=== PATIENT | male | born 1980 ===

== ENCOUNTER 2020-04-15 20:19 | Inpatient (IN) | payer SELFPAY ==
[2020-04-15 23:30] VITALS: BMI 36.9
[2020-04-16] MEDS ORDERED: FLU VACC QS2020-21(6MOS UP)/PF 60 MCG/0.5 ML SYRINGE IM ONE (07:15)
[2020-04-16] MEDS ORDERED: Acetaminophen 650 MG Suppository PR PRN (09:41)
[2020-04-16] MEDS ORDERED: Ondansetron ODT 4 MG TAB PO PRN (09:41)
[2020-04-16] MEDS ORDERED: Guaifenesin DM 100-10/5 ML UDCUP PO PRN (09:41)
[2020-04-16 09:42] LABS: #Lymphocytes 0.6 thou/uL (1.20-3.40); #Monocytes 0.6 thou/uL (0.11-0.59); #Neutrophils 8.1 thou/uL (1.40-6.50); %Lymphocytes 6.8 % (21.0-51.0); %Monocytes 6.1 % (0.0-10.0); Hemoglobin 14.6 g/dL (14.0-18.0); Mean Corpuscular HGB CONC 32.8 g/dL (32.0-36.0); Mean Corpuscular Hemoglobin 28.8 pg (27.0-31.0); Mean Corpuscular Volume 87.6 fL (78.0-98.0); Mean Platelet Volume 8.8 fL (7.4-10.4); Platelet Count 164 thou/uL (130-400); RBC Distribution Width 12.6 % (11.5-14.5); Red Blood Cell (RBC) Count 5.06 mill/uL (4.70-6.10); White Blood Cell (WBC) Count 9.3 thou/uL (4.8-10.8)
--- NOTE | 2020-04-16 09:42 | RAD ---
Exam: Chest one view HISTORY:Shortness of breath Comparison: 04/15/2020 FINDINGS: Cardiac silhouette: Normal Aorta: Unremarkable Pulmonary vessels: Normal Costophrenic angles: Clear LUNGS: Redemonstrated multifocal interstitial and alveolar opacities. Pneumothorax: None Osseous abnormalities: None IMPRESSION: Stable multi lobar pneumonia
[2020-04-16] MEDS ORDERED: Albuterol Sulfate 2.5 mg/3 ml Neb EZPAP PRN (09:44)
[2020-04-16 10:00] LABS: ALT (SGPT) 31 U/L (8-55); AST (SGOT) 28 U/L (5-34); Albumin 3.6 g/dL (3.5-5.0); Alkaline Phosphatase 52 U/L (40-110); Anion Gap 13 mmol/L (10-20); BUN (Urea Nitrogen) 11 mg/dL (8.9-20.6); Bilirubin, Total 0.4 mg/dL (0.2-1.2); Calc. Creatinine Clearance 190 mL/min (70-130); Calcium 8.1 mg/dL (7.8-10.44); Carbon Dioxide 26 mmol/L (22-29); Chloride 104 mmol/L (98-107); Globulin 3.5 g/dL (2.4-3.5); Glucose 116 mg/dL (70-105); Potassium 3.9 mmol/L (3.5-5.1); Protein, Total 7.1 g/dL (6.0-8.3); Sodium 139 mmol/L (136-145)
[2020-04-16] MEDS: cefTRIAXone\\ROCEPHIN 1 GM in Sodium Chloride 0.9% 100 ML IVPB SCH (10:27)
[2020-04-16] MEDS: Benzonatate 100 MG CAP PO PRN ×3 (10:27→20:26)
[2020-04-16] MEDS: Acetaminophen 325 MG TAB PO PRN ×3 (10:27→20:26)
[2020-04-16] MEDS: Ondansetron PF 4 MG/2 ML Vial IVP PRN ×2 (10:28→17:00)
[2020-04-16] MEDS ORDERED: REMDESIVIR (EUA) 200 MG in Sodium Chloride 0.9% 250 ML 210 ML IV SCH (10:30)
[2020-04-16] MEDS ORDERED: Melatonin 3 MG TAB PO PRN (11:30)
--- NOTE | 2020-04-16 11:44 | PDOC.HHP ---
Hospitalist HPI SOB History of Present Illness: Mr. Carr is a 39-year-old male with past medical history of childhood asthma not on any inhalers who presented to outside hospital for shortness of breath found to be Covid and flu B+. Patient reports that his symptoms began approximately 4 days ago with subjective fevers and myalgias. Patient developed a dry cough and shortness of breath the following day prompting him to present to the emergency room. Patient was transferred to [facility] in [place]. At outside hospital patient required 2 L nasal cannula O2 to maintain oxygenation saturation. His initial WBC was 5.9, H/H 15.5/46.4, platelets 129. BUN/CR was 10/0.9, potassium 4.3, sodium 137. AST/ALT 32/40. Initial troponin was less than 0.05, but myoglobin was slightly elevated at 182. Patient denies having any chest pain. D-dimer 181. Flu a was negative flu be positive. COVID-19 positive. Patient received Tamiflu at outside hospital as well as albuterol inhalers, ceftriaxone, azithromycin and Solu-Medrol. Chest x-ray showed multifocal bilateral infiltrates consistent with COVID-19 pneumonia. Allergies/Adverse Reactions: Allergy/AdvReac Type Severity Reaction Status Date / Time tramadol Allergy Verified 04/15/20 23:35 vancomycin Allergy Verified 04/15/20 23:35 Home Medications: Medication Instructions Recorded Confirmed Type No Known 04/15/20 04/15/20 History Past History: PMHx: Childhood history of asthma PSHx: Cholecystectomy uses alcohol FHx: No pertinent family history Social: Occasionally on the weekends, no smoking or drug use. Hospitalist HPI ROS Constitutional: reports: fever, chills, weakness, malaise. denies: sweats, other Eyes: denies: pain, vision change, conjunctivae inflammation, eyelid inflammation, redness, other ENT: reports: throat pain. denies: ear pain, ear discharge, nose pain, nose discharge, nose congestion, mouth pain, mouth swelling, throat swelling, other Respiratory: reports: cough, dry, shortness of breath, SOB with excertion. denies: hemoptysis, pleuritic pain, sputum, wheezing, other Cardiovascular: denies: chest pain, palpitations, orthopnea, paroxysmal noc. dyspnea, edema, light headedness, other Gastrointestinal: denies: nausea, vomiting, abdominal pain, diarrhea, constipation, melena, hematochezia, other Genitourinary: denies: dysuria, frequency, incontinence, hematuria, retention, other Musculoskeletal: denies: neck pain, shoulder pain, arm pain, back pain, hand pain, leg pain, foot pain, other Skin: denies: rash, lesions, norma, bruising, other Neurological: denies: weakness, numbness, incoordination, change in speech, confusion, seizures, other Hospitalist Exam Vitals: Vital Signs (12 hours) Temp Pulse Resp BP Pulse Ox 04/16/20 09:41 110/75 04/16/20 08:00 100.1 F H 88 20 110/85 91 L Weight Weight 228 lb 14.4 oz General Appearance: NAD, awake alert General - other findings: Comfortable on 3 L nasal cannula Eye: PERRL, anicteric sclera ENT: normocephalic atraumatic, no oropharyngeal lesions, moist mucosa Neck: supple, symmetric, no JVD, no thyromegaly, no lymphadenopathy, no carotid bruit Heart: RRR, no murmur, no gallops, no rubs, normal peripheral pulses Respiratory: CTAB, no wheezes, no rales, no ronchi, normal chest expansion, no tachypnea, normal percussion Gastrointestinal: soft, non-tender, non-distended, normal bowel sounds, no palpable masses, no hepatomegaly, no splenomegaly, no bruit Extremities: no cyanosis, no clubbing, no edema Skin: normal turgor, no lesions, no rashes Neurological: cranial nerve grossly intact, normal sensation to touch, no weakness, no focal deficits, no new deficit Musculoskeletal: normal tone, normal strength, no muscle wasting Psychiatric: normal affect, normal behavior, A&O x 3 Hospitalist Results Result Diagrams: 04/16/20 09:07 04/16/20 09:07 Lab results: Laboratory Last Values WBC 9.3 thou/uL (4.8-10.8) 04/16/20 09:07 RBC 5.06 mill/uL (4.70-6.10) 04/16/20 09:07 Hgb 14.6 g/dL (14.0-18.0) 04/16/20 09:07 Hct 44.3 % (42.0-52.0) 04/16/20 09:07 MCV 87.6 fL (78.0-98.0) 04/16/20 09:07 MCH 28.8 pg (27.0-31.0) 04/16/20 09:07 MCHC 32.8 g/dL (32.0-36.0) 04/16/20 09:07 RDW 12.6 % (11.5-14.5) 04/16/20 09:07 Plt Count 164 thou/uL (130-400) 04/16/20 09:07 MPV 8.8 fL (7.4-10.4) 04/16/20 09:07 Neutrophils % 87.0 % (42.0-75.0) H 04/16/20 09:07 Lymphocytes % 6.8 % (21.0-51.0) L 04/16/20 09:07 Monocytes % 6.1 % (0.0-10.0) 04/16/20 09:07 Eosinophils % 0.0 % (0.0-10.0) 04/16/20 09:07 Basophils % 0.0 % (0.0-1.0) 04/16/20 09:07 Neutrophils # 8.1 thou/uL (1.40-6.50) H 04/16/20 09:07 Lymphocytes # 0.6 thou/uL (1.20-3.40) L 04/16/20 09:07 Monocytes # 0.6 thou/uL (0.11-0.59) H 04/16/20 09:07 Eosinophils # 0.0 thou/uL (0.0-0.7) 04/16/20 09:07 Basophils # 0.0 thou/uL (0.0-0.2) 04/16/20 09:07 Sodium 139 mmol/L (136-145) 04/16/20 09:07 Potassium 3.9 mmol/L (3.5-5.1) 04/16/20 09:07 Chloride 104 mmol/L (98-107) 04/16/20 09:07 Carbon Dioxide 26 mmol/L (22-29) 04/16/20 09:07 Anion Gap 13 mmol/L (10-20) 04/16/20 09:07 BUN 11 mg/dL (8.9-20.6) 04/16/20 09:07 Creatinine 0.78 mg/dL (0.7-1.3) 04/16/20 09:07 Estimated GFR (MDRD) Greater than 90 04/16/20 09:07 Glucose 116 mg/dL (70-105) H 04/16/20 09:07 Calcium 8.1 mg/dL (7.8-10.44) 04/16/20 09:07 Total Bilirubin 0.4 mg/dL (0.2-1.2) 04/16/20 09:07 AST 28 U/L (5-34) 04/16/20 09:07 ALT 31 U/L (8-55) 04/16/20 09:07 Alkaline Phosphatase 52 U/L (40-110) 04/16/20 09:07 Serum Total Protein 7.1 g/dL (6.0-8.3) 04/16/20 09:07 Albumin 3.6 g/dL (3.5-5.0) 04/16/20 09:07 Globulin 3.5 g/dL (2.4-3.5) 04/16/20 09:07 Albumin/Globulin Ratio 1.0 g/dL (1.2-2.2) L 04/16/20 09:07 Hospitalist H&P A/P Plan: COVID-19 pneumonia 39-year-old male past medical history of childhood asthma not on any inhalers presents with shortness of breath found to have COVID-19 pneumonia. Patient symptoms began on 04/12/2020, and have been progressive. Patient initially presented to outside hospital and was held there for 2 days. Patient initially requiring 2 L of oxygen via nasal cannula now up to 3 L. Patient did received steroids at outside hospital positive for flu B and did receive Tamiflu at outside hospital. Patient transferred to [facility] for higher level of care. There is a question, asked nursing staff if patient had received remdesivir at outside hospital and concern of LFTs, however I am unable to find this in any of her records and in fact patient's LFTs taken on the , first and second are all within normal limits. We will continue supplemental oxygen, obtain baseline inflammatory markers continue Decadron and start remdesivir. Plan -Decadron, remdesivir -Ceftriaxone, azithromycin -Supplemental oxygen -Tylenol, Robitussin -Vitamin C, zinc -We will obtain baseline inflammatory markers Acute hypoxic respiratory failure Patient with acute hypoxic respiratory failure secondary to moderate to severe COVID-19 pneumonia. Patient with new oxygen requirement now on 3 L of oxygen nasal cannula to maintain O2 sat. We will continue supplemental oxygen and closely monitor respiratory status. Treatment as above. Plan -Supplemental oxygen -Treatment as above -Closely monitor respiratory status Influenza Patient has a positive for flu B head outside hospital. Patient also Covid positive. Chest x-ray consistent with COVID-19 pneumonia. Given patient's oxygen requirements symptoms and chest x-ray findings suspect pneumonia is more likely due to COVID-19. Patient did receive Tamiflu at outside hospital. I have discussed this with the clinical pharmacist and there are small studies and expert advice recommends against the use of Tamiflu and remdesivir at the same time for concerns that Tamiflu would make remdesivir less effective. Since COVID-19 is likely patient's major concern we will continue remdesivir and hold Tamiflu at this time. Plan Supportive care Treatment for COVID-19 pneumonia as above Airborne, contact, droplet precautions DVT prophylaxisLovenox Full codeMDM is patient's mother.
[2020-04-16] MEDS ORDERED: Azithromycin 500 MG in Sodium Chloride 0.9% 250 ML 250 ML IVPB SCH (20:00)
[2020-04-16] MEDS ORDERED: Ibuprofen 200 MG TAB PO SCH (22:30)
[2020-04-16] MEDS ORDERED: Sodium Chloride 0.9% 500 ML IV SCH (22:30)
[2020-04-16] MEDS: Sodium Chloride 0.9% 1,000 ML IV SCH (22:38)
[2020-04-16 23:10] LABS: Lactic Acid 1.4 mmol/L (0.5-2.2)
[2020-04-16 23:14] LABS: Anion Gap 13 mmol/L (10-20); Carbon Dioxide 25 mmol/L (22-29); Chloride 101 mmol/L (98-107); Magnesium 2.1 mg/dL (1.6-2.6); Sodium 135 mmol/L (136-145)
--- NOTE | 2020-04-17 00:11 | CT ---
CT ANGIOGRAM THORAX WITH IV CONTRAST AND 3-D RECONSTRUCTIONS CLINICAL INDICATION: Tachycardia and shortness of breath. COMPARISON: None FINDINGS: Pulmonary arteries: No filling defects are seen in the central or proximal segmental pulmonary arteri es, but there is suboptimal opacification of the distal segmental and subsegmental pulmonary arteries due to suboptimal timing of the contrast bolus limiting evaluation for pulmonary emboli at t hese levels. Aorta: The aorta is normal in caliber without evidence of an aortic dissection. Lungs: There are scattered multifocal groundglass densities seen throughout the lungs bilaterally in a pattern most compatible with viral pneumonitis such as Covid 19. No pleural effusion or pneumothorax is seen to Mediastinum: Enlarged mediastinal lymph nodes are present. A subcarinal lymph node is present measuri ng 1.3 cm in short axis dimension with additional para-aortic prominent lymph nodes also present with mild soft tissue density in each hilar region. Findings are likely related to reactive lymphaden opathy. Thyroid gland: Limited visualized thyroid gland has a normal appearance to Osseous structures: No suspicious lytic or sclerotic osseous lesion. Chest wall: No abnormality visualized. Upper abdomen: Postcholecystectomy changes are present. IMPRESSION: 1. Multifocal groundglass densities seen throughout the lungs bilaterally in a pattern which can be s een with viral pneumonitis such as Covid 19. [address] evidence of a pulmonary embolus involving the central or proximal segmental pulmonary arteri es. There is suboptimal opacification of the distal segmental and subsegmental pulmonary arteries limiting evaluation for pulmonary emboli at these levels. 3. Mediastinal and hilar lymphadenopathy which may be reactive in origin.
[2020-04-17] MEDS: Sodium Chloride 0.9% 1,000 ML IV SCH ×4 (01:29→21:59)
[2020-04-17 06:48] LABS: #Eosinphils 0.1 thou/uL (0.0-0.7); #Lymphocytes 1.4 thou/uL (1.20-3.40); #Monocytes 0.6 thou/uL (0.11-0.59); #Neutrophils 6.9 thou/uL (1.40-6.50); %Basophils 0.1 % (0.0-1.0); %Eosinophils 0.6 % (0.0-10.0); %Lymphocytes 15.2 % (21.0-51.0); %Monocytes 6.9 % (0.0-10.0); %Neutrophils 77.3 % (42.0-75.0); Hemoglobin 15.2 g/dL (14.0-18.0); Mean Corpuscular HGB CONC 33.4 g/dL (32.0-36.0); Mean Corpuscular Hemoglobin 29.7 pg (27.0-31.0); Mean Corpuscular Volume 88.9 fL (78.0-98.0); Mean Platelet Volume 8.3 fL (7.4-10.4); Platelet Count 172 thou/uL (130-400); RBC Distribution Width 12.6 % (11.5-14.5); Red Blood Cell (RBC) Count 5.13 mill/uL (4.70-6.10); White Blood Cell (WBC) Count 8.9 thou/uL (4.8-10.8)
[2020-04-17 07:17] LABS: Anion Gap 14 mmol/L (10-20); BUN (Urea Nitrogen) 11 mg/dL (8.9-20.6); Calc. Creatinine Clearance 175 mL/min (70-130); Calcium 7.9 mg/dL (7.8-10.44); Carbon Dioxide 26 mmol/L (22-29); Chloride 103 mmol/L (98-107); Glucose 92 mg/dL (70-105); Sodium 139 mmol/L (136-145)
[2020-04-17 07:22] LABS: ALT (SGPT) 42 U/L (8-55); AST (SGOT) 38 U/L (5-34); Albumin 3.6 g/dL (3.5-5.0); Alkaline Phosphatase 62 U/L (40-110); Bilirubin, Direct 0.3 mg/dL (0.1-0.3); Bilirubin, Total 0.6 mg/dL (0.2-1.2); Protein, Total 7.1 g/dL (6.0-8.3)
[2020-04-17] MEDS: Acetaminophen 325 MG TAB PO PRN (07:51)
[2020-04-17] MEDS: Dexamethasone 4 MG TAB PO SCH (07:51)
[2020-04-17] MEDS: cefTRIAXone\\ROCEPHIN 1 GM in Sodium Chloride 0.9% 100 ML IVPB SCH (07:53)
[2020-04-17] MEDS ORDERED: Ascorbic Acid 500 mg Chewable Tablet PO SCH ×2 (09:00)
[2020-04-17] MEDS ORDERED: Cholecalciferol (Vitamin D3) 400 UNITS TAB PO SCH (09:00)
[2020-04-17] MEDS ORDERED: Enoxaparin Sodium 40 MG/0.4 ML SYRINGE SC SCH (09:00)
[2020-04-17] MEDS ORDERED: Zinc Sulfate 220 MG CAP PO SCH ×2 (09:00)
[2020-04-17] MEDS: REMDESIVIR (EUA) 100 MG in Sodium Chloride 0.9% 250 ML 230 ML IV SCH (10:41)
--- NOTE | 2020-04-17 15:41 | PDOC.HOSPP ---
- Subjective Encounter Date: 04/17/20 Subjective: Continues to have some cough. No major shortness of breath. No other specific concerns. - Objective Vital Signs & Weight: Vital Signs (12 hours) Temp Pulse Resp BP Pulse Ox 04/17/20 11:04 99.4 F 101 H 16 101/71 97 04/17/20 10:53 99.4 F 102 H 20 108/71 97 04/17/20 07:34 102.6 F H 117 H 18 128/82 91 L 04/17/20 04:34 98.0 F 92 16 108/69 94 L Weight Weight 228 lb 14.4 oz Most Recent Monitor Data Heart Rate from ECG 88 NIBP 96/61 I&O: 04/16/20 04/17/20 04/18/20 06:59 06:59 06:59 Intake Total 2450 360 Output Total 1700 500 Balance 750 -140 Result Diagrams: 04/17/20 06:20 04/17/20 06:20 Hospitalist ROS - Medication Medications: Active Medications Generic Name Dose Route Start Last Admin Trade Name Freq PRN Reason Stop Dose Admin Acetaminophen 650 mg 04/16/20 09:41 04/17/20 07:51 Acetaminophen 325 Mg Tab PO 650 mg Q4H PRN Administration Headache/Fever/Mild Pain (1-3) Benzonatate 100 mg 04/16/20 09:46 04/16/20 20:26 Benzonatate 100 Mg Cap PO 100 mg Q4H PRN Administration Cough Cholecalciferol 400 units 04/17/20 09:00 04/17/20 07:51 Cholecalciferol (Vitamin D3) 400 Units Tab PO 400 units DAILY DARBY Administration Dexamethasone 6 mg 04/17/20 08:00 04/17/20 07:51 Dexamethasone 4 Mg Tab PO 6 mg QAM- DARBY Administration Remdesivir 100 mg/ Sodium 250 mls @ 250 mls/hr 04/17/20 11:00 04/17/20 10:41 Chloride IV 04/20/20 11:59 250 mls 1100 DARBY Administration Sodium Chloride 1,000 mls @ 100 mls/hr 04/17/20 01:15 04/17/20 10:36 Normal Saline 0.9% IV Not Given .Q10H DARBY Ondansetron HCl 4 mg 04/16/20 09:41 04/16/20 17:00 Ondansetron Pf 4 Mg/2 Ml Vial IVP 4 mg Q6H PRN Administration Nausea/Vomiting Hospitalist Exam Vitals: Vital Signs (12 hours) Temp Pulse Resp BP Pulse Ox 04/17/20 11:04 99.4 F 101 H 16 101/71 97 04/17/20 10:53 99.4 F 102 H 20 108/71 97 04/17/20 07:34 102.6 F H 117 H 18 128/82 91 L 04/17/20 04:34 98.0 F 92 16 108/69 94 L Weight Weight 228 lb 14.4 oz Most Recent Monitor Data Heart Rate from ECG 88 NIBP 96/61 General Appearance: NAD, awake alert General - other findings: Obese Heart: RRR, no murmur, no gallops, no rubs, normal peripheral pulses Respiratory: CTAB, no wheezes, no rales, no ronchi, normal chest expansion, no t achypnea, normal percussion Gastrointestinal: soft, non-tender, non-distended, normal bowel sounds, no palpable masses, no hepatomegaly, no splenomegaly, no bruit Extremities: no cyanosis, no clubbing, no edema Skin: normal turgor, no lesions Musculoskeletal: normal tone, normal strength, no muscle wasting Psychiatric: normal affect, normal behavior, A&O x 3 Hosp A/P (1) Acute respiratory failure with hypoxia Code(s): J96.01 - ACUTE RESPIRATORY FAILURE WITH HYPOXIA Status: Acute (2) Pneumonia due to COVID-19 virus Code(s): U07.1 - COVID-19; J12.82 - PNEUMONIA DUE TO CORONAVIRUS DISEASE 2019 Status: Acute - Plan Acute hypoxic respiratory failure: Secondary to COVID-19 pneumonia. Continue supplemental oxygen as needed. Bronchodilators. COVID-19 pneumonia: CT of the chest reveals moderate amount of inflammatory changes. Continue to monitor inflammatory markers. Patient did receive convalescent plasma on admission. He is currently receiving Remdesivir. Continue Decadron. DC antibiotics. DC vitamin C, zinc. Cough suppression.
[2020-04-17] MEDS: Benzonatate 100 MG CAP PO PRN ×2 (18:26→22:08)
[2020-04-17] MEDS: Enoxaparin Sodium 40 MG/0.4 ML SYRINGE SC SCH (21:59)
[2020-04-18 06:13] LABS: Anion Gap 13 mmol/L (10-20); BUN (Urea Nitrogen) 16 mg/dL (8.9-20.6); Calc. Creatinine Clearance 201 mL/min (70-130); Calcium 7.4 mg/dL (7.8-10.44); Carbon Dioxide 22 mmol/L (22-29); Chloride 104 mmol/L (98-107); Glucose 126 mg/dL (70-105); Potassium 3.8 mmol/L (3.5-5.1); Sodium 135 mmol/L (136-145)
[2020-04-18 06:48] LABS: Band 17 % (5-11); Hemoglobin 13.9 g/dL (14.0-18.0); Lymphocytes 9 % (21-51); MDiff Complete? YES; Mean Corpuscular HGB CONC 33.1 g/dL (32.0-36.0); Mean Corpuscular Hemoglobin 28.9 pg (27.0-31.0); Mean Corpuscular Volume 87.6 fL (78.0-98.0); Mean Platelet Volume 8.3 fL (7.4-10.4); Monocytes 7 % (0-10); Neutrophil 67 % (42-75); Platelet Count 194 thou/uL (130-400); Platelet Morphology Comment Appears Adequate; RBC Distribution Width 12.4 % (11.5-14.5); White Blood Cell (WBC) Count 7.3 thou/uL (4.8-10.8)
[2020-04-18] MEDS: Dexamethasone 4 MG TAB PO SCH (08:20)
[2020-04-18] MEDS: Calcium Carbonate 600 MG + Vit D TAB PO SCH ×2 (08:20→17:33)
[2020-04-18] MEDS: Sodium Chloride 0.9% 1,000 ML IV SCH ×3 (08:21→21:17)
[2020-04-18] MEDS: Enoxaparin Sodium 40 MG/0.4 ML SYRINGE SC SCH ×2 (08:21→20:15)
[2020-04-18] MEDS: REMDESIVIR (EUA) 100 MG in Sodium Chloride 0.9% 250 ML 230 ML IV SCH (12:20)
[2020-04-18] MEDS: Benzonatate 100 MG CAP PO PRN (12:20)
--- NOTE | 2020-04-18 15:11 | PDOC.HOSPP ---
- Subjective Encounter Date: 04/18/20 Subjective: Feeling better overall. Feels like he is breathing a little more comfortably and has a little less cough. He is able to take his oxygen off at times and continue to feel like he is doing relatively well. - Objective Vital Signs & Weight: Vital Signs (12 hours) Temp Pulse Resp BP Pulse Ox 04/18/20 12:00 98.4 F 83 16 93 L 04/18/20 11:52 98.4 F 83 16 111/75 93 L 04/18/20 08:00 95 04/18/20 07:52 98.2 F 74 16 110/73 96 04/18/20 04:00 97.7 F 88 20 110/73 92 L Weight Weight 228 lb 14.4 oz Most Recent Monitor Data Heart Rate from ECG 88 NIBP I&O: 04/17/20 04/18/20 04/19/20 06:59 06:59 06:59 Intake Total 2450 360 Output Total 1700 500 Balance 750 -140 Result Diagrams: 04/18/20 05:38 04/18/20 05:38 Hospitalist ROS - Medication Medications: Active Medications Generic Name Dose Route Start Last Admin Trade Name Freq PRN Reason Stop Dose Admin Acetaminophen 650 mg 04/16/20 09:41 04/17/20 07:51 Acetaminophen 325 Mg Tab PO 650 mg Q4H PRN Administration Headache/Fever/Mild Pain (1-3) Benzonatate 100 mg 04/16/20 09:46 04/18/20 12:20 Benzonatate 100 Mg Cap PO 100 mg Q4H PRN Administration Cough Calcium/Vitamin D 1 tab 04/18/20 08:00 04/18/20 08:20 Calcium Carbonate 600 Mg + Vit D Tab PO 1 tab BID-WM DARBY Administration Dexamethasone 6 mg 04/17/20 08:00 04/18/20 08:20 Dexamethasone 4 Mg Tab PO 6 mg QAM-WM DARBY Administration Enoxaparin Sodium 40 mg 04/17/20 21:00 04/18/20 08:21 Enoxaparin Sodium 40 Mg/0.4 Ml Syringe SC 40 mg 0900,2100 DARBY Administration Remdesivir 100 mg/ Sodium 250 mls @ 250 mls/hr 04/17/20 11:00 04/18/20 12:20 Chloride IV 04/20/20 11:59 250 mls 1100 DARBY Administration Sodium Chloride 1,000 mls @ 100 mls/hr 04/17/20 01:15 04/18/20 08:21 Normal Saline 0.9% IV 1,000 mls .Q10H DARBY Administration Ondansetron HCl 4 mg 04/16/20 09:41 04/16/20 17:00 Ondansetron Pf 4 Mg/2 Ml Vial IVP 4 mg Q6H PRN Administration Nausea/Vomiting Hospitalist Exam Vitals: Vital Signs (12 hours) Temp Pulse Resp BP Pulse Ox 04/18/20 12:00 98.4 F 83 16 93 L 04/18/20 11:52 98.4 F 83 16 111/75 93 L 04/18/20 08:00 95 04/18/20 07:52 98.2 F 74 16 110/73 96 04/18/20 04:00 97.7 F 88 20 110/73 92 L Weight Weight 228 lb 14.4 oz Most Recent Monitor Data Heart Rate from ECG 88 NIBP 96/61 General Appearance: NAD, awake alert Heart: RRR, no murmur, no gallops, no rubs, normal peripheral pulses Respiratory: no wheezes, no ronchi Respiratory - other findings: Very modest scattered rales. Gastrointestinal: soft, non-tender, non-distended, normal bowel sounds, no palpable masses, no hepatomegaly, no splenomegaly, no bruit Extremities: no cyanosis, no clubbing, no edema Musculoskeletal: normal tone, normal strength, no muscle wasting Hosp A/P (1) Acute respiratory failure with hypoxia Code(s): J96.01 - ACUTE RESPIRATORY FAILURE WITH HYPOXIA Status: Acute (2) Pneumonia due to COVID-19 virus Code(s): U07.1 - COVID-19; J12.82 - PNEUMONIA DUE TO CORONAVIRUS DISEASE 2019 Status: Acute (3) Influenza B Code(s): J10.1 - FLU DUE TO OTH IDENT INFLUENZA VIRUS W OTH RESP MANIFEST Status: Acute - Plan Acute hypoxic respiratory failure: Secondary to COVID-19 pneumonia. Continue supplemental oxygen as needed. Wean as tolerated Bronchodilators. COVID-19 pneumonia: CT of the chest reveals moderate amount of inflammatory changes. Continue to monitor inflammatory markers. Patient did receive convalescent plasma on admission. He is currently receiving Remdesivir and will complete that on 04/20/2020 Continue Decadron. DC antibiotics. DC vitamin C, zinc. Cough suppression. Influenza B: Patient initially screened positive for flu B. Seems as though Tamiflu is contraindicated with the Remdesivir. Confirmation test was not performed it is unclear if this is truly positive. Would not change the current management either way.
[2020-04-19] MEDS: Sodium Chloride 0.9% 1,000 ML IV SCH (05:32)
[2020-04-19] MEDS: Ondansetron PF 4 MG/2 ML Vial IVP PRN (05:36)
[2020-04-19 06:26] LABS: #Lymphocytes 0.9 thou/uL (1.20-3.40); #Monocytes 0.8 thou/uL (0.11-0.59); #Neutrophils 5.8 thou/uL (1.40-6.50); %Basophils 0.2 % (0.0-1.0); %Eosinophils 0.1 % (0.0-10.0); %Lymphocytes 12.3 % (21.0-51.0); %Neutrophils 76.4 % (42.0-75.0); Hemoglobin 14.2 g/dL (14.0-18.0); Mean Corpuscular HGB CONC 32.9 g/dL (32.0-36.0); Mean Corpuscular Hemoglobin 28.8 pg (27.0-31.0); Mean Corpuscular Volume 87.4 fL (78.0-98.0); Mean Platelet Volume 8.5 fL (7.4-10.4); Platelet Count 241 thou/uL (130-400); RBC Distribution Width 12.4 % (11.5-14.5); Red Blood Cell (RBC) Count 4.92 mill/uL (4.70-6.10); White Blood Cell (WBC) Count 7.6 thou/uL (4.8-10.8)
[2020-04-19 06:47] LABS: Anion Gap 13 mmol/L (10-20); BUN (Urea Nitrogen) 16 mg/dL (8.9-20.6); Calc. Creatinine Clearance 193 mL/min (70-130); Calcium 8.1 mg/dL (7.8-10.44); Carbon Dioxide 24 mmol/L (22-29); Chloride 106 mmol/L (98-107); Glucose 122 mg/dL (70-105); Sodium 139 mmol/L (136-145)
[2020-04-19 07:20] LABS: ALT (SGPT) 30 U/L (8-55); AST (SGOT) 25 U/L (5-34); Albumin 3.1 g/dL (3.5-5.0); Alkaline Phosphatase 54 U/L (40-110); Bilirubin, Direct 0.2 mg/dL (0.1-0.3); Bilirubin, Total 0.5 mg/dL (0.2-1.2); Protein, Total 6.3 g/dL (6.0-8.3)
[2020-04-19] MEDS: Calcium Carbonate 600 MG + Vit D TAB PO SCH ×2 (08:39→16:03)
[2020-04-19] MEDS: Dexamethasone 4 MG TAB PO SCH (08:39)
[2020-04-19] MEDS: Enoxaparin Sodium 40 MG/0.4 ML SYRINGE SC SCH ×2 (08:40→20:24)
--- NOTE | 2020-04-19 09:09 | PDOC.HOSPP ---
- Subjective Encounter Date: 04/19/20 (f/u covid) Encounter Time: 09:08 Subjective: Overnight pt c/o abd pain, and today nausea. He is currently feeling better. 1 episode of diarrhea today. Cough persists, breathing intermittently feels better/worse. he is currently off oxygen with last pulse ox 92% - Objective Vital Signs & Weight: Vital Signs (12 hours) Temp Pulse Resp BP Pulse Ox 04/19/20 05:58 97.6 F 65 20 103/69 98 04/19/20 00:54 97.6 F 69 20 103/68 96 Weight Weight 228 lb 14.4 oz Most Recent Monitor Data Heart Rate from ECG 88 NIBP 96/ I&O: 04/18/20 04/19/20 04/20/20 06:59 06:59 06:59 Intake Total 360 Output Total 500 Balance -140 Result Diagrams: 04/19/20 05:32 04/19/20 05:32 Hospitalist ROS - Medication Medications: Active Medications Generic Name Dose Route Start Last Admin Trade Name Freq PRN Reason Stop Dose Admin Acetaminophen 650 mg 04/16/20 09:41 04/17/20 07:51 Acetaminophen 325 Mg Tab PO 650 mg Q4H PRN Administration Headache/Fever/Mild Pain (1-3) Benzonatate 100 mg 04/16/20 09:46 04/18/20 12:20 Benzonatate 100 Mg Cap PO 100 mg Q4H PRN Administration Cough Calcium/Vitamin D 1 tab 04/18/20 08:00 04/19/20 08:39 Calcium Carbonate 600 Mg + Vit D Tab PO 1 tab BID-WM DARBY Administration Dexamethasone 6 mg 04/17/20 08:00 04/19/20 08:39 Dexamethasone 4 Mg Tab PO 6 mg QAM-WM DARBY Administration Enoxaparin Sodium 40 mg 04/17/20 21:00 04/19/20 08:40 Enoxaparin Sodium 40 Mg/0.4 Ml Syringe SC 40 mg 0900,2100 DARBY Administration Remdesivir 100 mg/ Sodium 250 mls @ 250 mls/hr 04/17/20 11:00 04/18/20 12:20 Chloride IV 04/20/20 11:59 250 mls 1100 DARBY Administration Sodium Chloride 1,000 mls @ 100 mls/hr 04/17/20 01:15 02/06/21 05:32 Normal Saline 0.9% IV 1,000 mls .Q10H DARBY Administration Ondansetron HCl 4 mg 04/16/20 09:41 04/19/20 05:36 Ondansetron Pf 4 Mg/2 Ml Vial IVP 4 mg Q6H PRN Administration Nausea/Vomiting Hospitalist Exam Vitals: Vital Signs (12 hours) Temp Pulse Resp BP Pulse Ox 04/19/20 05:58 97.6 F 65 20 103/69 98 04/19/20 00:54 97.6 F 69 20 103/68 96 Weight Weight 228 lb 14.4 oz Most Recent Monitor Data Heart Rate from ECG 88 NIBP 96/61 General Appearance: NAD Heart: RRR, no murmur Respiratory: no wheezes, no rales, no ronchi Respiratory - other findings: decreased breath sounds at bases Gastrointestinal: soft, non-tender, non-distended, normal bowel sounds Extremities: no cyanosis, no clubbing, no edema Psychiatric: normal affect Hosp A/P (1) Acute respiratory failure with hypoxia Code(s): J96.01 - ACUTE RESPIRATORY FAILURE WITH HYPOXIA Status: Acute (2) Influenza B Code(s): J10.1 - FLU DUE TO OTH IDENT INFLUENZA VIRUS W OTH RESP MANIFEST Status: Acute (3) Pneumonia due to COVID-19 virus Code(s): U07.1 - COVID-19; J12.82 - PNEUMONIA DUE TO CORONAVIRUS DISEASE 2019 Status: Acute (4) Abdominal pain Code(s): R10.9 - UNSPECIFIED ABDOMINAL PAIN Status: Acute - Plan Acute hypoxic respiratory failure: Secondary to COVID-19 pneumonia. Continue supplemental oxygen as needed. Wean as tolerated Bronchodilators. COVID-19 pneumonia: Patient did receive convalescent plasma on admission. He is currently receiving Remdesivir and will complete that on 04/20/2020 Continue Decadron. No indication for further antibiotics DC vitamin C, zinc. Cough suppression. Influenza B: Patient initially screened positive for flu B. Seems as though Tamiflu is contraindicated with the Remdesivir. Confirmation test was not performed it is unclear if this is truly positive. Would not change the current management either way. Abdominal pain - benign abd exam and likely due to steroids - add protonix - check xray dvt prophy- bid lovenox gi prophy - add protonix code status full reviewed plan of care with patient, no questions or further needs at end of eval. Addendum - messaged by RN that pt had recurrence of abdominal pain. XR reviewed from earlier and no signs of obstruction. GI cocktail ordered.
--- NOTE | 2020-04-19 10:24 | RAD ---
ABDOMEN 1 VIEW: Date: 04/19/2020 HISTORY: Abdominal pain. Patient is COVID-19 positive. FINDINGS/IMPRESSION: The patient is post cholecystectomy. The bowel gas pattern is unremarkable. No suspicious calcificati ons are identified. POS: [facility]
[2020-04-19] MEDS: REMDESIVIR (EUA) 100 MG in Sodium Chloride 0.9% 250 ML 230 ML IV SCH (12:09)
[2020-04-19] MEDS: Acetaminophen 325 MG TAB PO PRN (12:11)
[2020-04-19] MEDS: Benzonatate 100 MG CAP PO PRN ×2 (12:12→20:24)
[2020-04-19] MEDS ORDERED: Lidocaine 2% Viscous Solution 10 ML, Aluminum & Magnesium Hydroxide 30 ML SSW SCH (16:30)
[2020-04-20] MEDS: Sodium Chloride 0.9% 1,000 ML IV SCH (04:07)
[2020-04-20] MEDS ORDERED: Sodium Chloride 0.9% 1,000 ML IV SCH (04:30)
[2020-04-20 05:41] LABS: #Lymphocytes 1.3 thou/uL (1.20-3.40); #Neutrophils 6.3 thou/uL (1.40-6.50); %Basophils 0.1 % (0.0-1.0); %Eosinophils 0.4 % (0.0-10.0); %Lymphocytes 15.5 % (21.0-51.0); %Neutrophils 73.1 % (42.0-75.0); Hemoglobin 14.3 g/dL (14.0-18.0); Mean Corpuscular HGB CONC 33.1 g/dL (32.0-36.0); Mean Corpuscular Volume 87.4 fL (78.0-98.0); Mean Platelet Volume 8.1 fL (7.4-10.4); Platelet Count 255 thou/uL (130-400); RBC Distribution Width 12.4 % (11.5-14.5); Red Blood Cell (RBC) Count 4.93 mill/uL (4.70-6.10); White Blood Cell (WBC) Count 8.6 thou/uL (4.8-10.8)
[2020-04-20 06:02] LABS: ALT (SGPT) 27 U/L (8-55); AST (SGOT) 19 U/L (5-34); Albumin 2.9 g/dL (3.5-5.0); Alkaline Phosphatase 46 U/L (40-110); Bilirubin, Direct 0.2 mg/dL (0.1-0.3); Bilirubin, Total 0.4 mg/dL (0.2-1.2)
[2020-04-20 06:05] LABS: Anion Gap 13 mmol/L (10-20); BUN (Urea Nitrogen) 15 mg/dL (8.9-20.6); Calc. Creatinine Clearance 212 mL/min (70-130); Calcium 7.9 mg/dL (7.8-10.44); Carbon Dioxide 24 mmol/L (22-29); Chloride 105 mmol/L (98-107); Glucose 99 mg/dL (70-105); Sodium 138 mmol/L (136-145)
[2020-04-20 06:07] LABS: CRP (Inflammatory) 2.64 mg/dL (= or < 0.5); Magnesium 2.2 mg/dL (1.6-2.6)
[2020-04-20] MEDS: Enoxaparin Sodium 40 MG/0.4 ML SYRINGE SC SCH ×2 (10:40→20:19)
[2020-04-20] MEDS: Dexamethasone 4 MG TAB PO SCH (10:40)
--- NOTE | 2020-04-20 10:54 | PDOC.HOSPP ---
- Subjective Encounter Date: 04/20/20 (f/u covid pneumonia) Encounter Time: 10:50 Subjective: Overnight pt had abd pain and developed heart rate into the 40's. He does not monitor his pulse at home. He denies any lightheaded/dizzy/shortness of breath. He reports small loose stools yesterday, none today. He denies any abd pain today. - Objective Vital Signs & Weight: Vital Signs (12 hours) Temp Pulse Resp BP BP Pulse Ox 04/20/20 07:00 97.9 F 63 20 116/77 97 04/20/20 05:34 98.0 F 59 L 18 114/76 100 04/20/20 04:12 50 L 04/20/20 03:00 46 L 04/20/20 01:24 97.6 F 60 18 107/72 98 Weight Weight 228 lb 14.4 oz Most Recent Monitor Data Heart Rate from ECG 88 NIBP 96/61 I&O: 04/19/20 04/20/20 04/21/20 06:59 06:59 06:59 Intake Total 1340 Output Total 700 Balance 640 Result Diagrams: 04/20/20 05:30 04/20/20 05:30 Hospitalist ROS - Medication Medications: Active Medications Generic Name Dose Route Start Last Admin Trade Name Freq PRN Reason Stop Dose Admin Acetaminophen 650 mg 04/16/20 09:41 04/19/20 12:11 Acetaminophen 325 Mg Tab PO 650 mg Q4H PRN Administration Headache/Fever/Mild Pain (1-3) Benzonatate 100 mg 04/16/20 09:46 04/19/20 20:24 Benzonatate 100 Mg Cap PO 100 mg Q4H PRN Administration Cough Dexamethasone 6 mg 04/17/20 08:00 04/19/20 08:39 Dexamethasone 4 Mg Tab PO 6 mg QAM-WM DARBY Administration Enoxaparin Sodium 40 mg 04/17/20 21:00 04/19/20 20:24 Enoxaparin Sodium 40 Mg/0.4 Ml Syringe SC 40 mg 0900,2100 DARBY Administration Remdesivir 100 mg/ Sodium 250 mls @ 250 mls/hr 04/17/20 11:00 04/19/20 12:09 Chloride IV 04/20/20 11:59 250 mls 1100 DARBY Administration Ondansetron HCl 4 mg 04/16/20 09:41 04/19/20 05:36 Ondansetron Pf 4 Mg/2 Ml Vial IVP 4 mg Q6H PRN Administration Nausea/Vomiting Hospitalist Exam Vitals: Vital Signs (12 hours) Temp Pulse Resp BP BP Pulse Ox 04/20/20 07:00 97.9 F 63 20 116/77 97 04/20/20 05:34 98.0 F 59 L 18 114/76 100 04/20/20 04:12 50 L 04/20/20 03:00 46 L 04/20/20 01:24 97.6 F 60 18 107/72 98 Weight Weight 228 lb 14.4 oz Most Recent Monitor Data Heart Rate from ECG 88 NIBP 96/61 General Appearance: NAD Heart: RRR, no murmur Respiratory: no wheezes, no rales, no ronchi Respiratory - other findings: improved air movement today Gastrointestinal: soft, non-tender, non-distended, normal bowel sounds Extremities: no cyanosis, no clubbing, no edema Psychiatric: normal affect Hosp A/P (1) Acute respiratory failure with hypoxia Code(s): J96.01 - ACUTE RESPIRATORY FAILURE WITH HYPOXIA Status: Acute (2) Influenza B Code(s): J10.1 - FLU DUE TO OTH IDENT INFLUENZA VIRUS W OTH RESP MANIFEST Status: Acute (3) Pneumonia due to COVID-19 virus Code(s): U07.1 - COVID-19; J12.82 - PNEUMONIA DUE TO CORONAVIRUS DISEASE 2019 Status: Acute (4) Abdominal pain Code(s): R10.9 - UNSPECIFIED ABDOMINAL PAIN Status: Acute - Plan Acute hypoxic respiratory failure: overall improved Secondary to COVID-19 pneumonia. currently on room air - check with ambulation Bronchodilators. COVID-19 pneumonia: inflammatory markers improved Patient did receive convalescent plasma on admission and will complete remdesivir today Continue Decadron. No indication for further antibiotics DC vitamin C, zinc. Cough suppression. Influenza B: Patient initially screened positive for flu B. Seems as though Tamiflu is contraindicated with the Remdesivir. Confirmation test was not performed it is unclear if this is truly positive. Would not change the current management either way. Abdominal pain - benign abd exam and likely due to steroids - currently resolved. Lipase minimally elevated - do not think this is clinically relevant - c diff test if diarrhea Bradycardia - does not appear to be symptomatic. Monitor for another 24 hours and if no sx, can defer evaluation to outpatient setting. Anticipate d/c tomorrow if off oxygen and no further abd pain dvt prophy- bid lovenox gi prophy - add protonix code status full reviewed plan of care with patient, no questions or further needs at end of eval.
[2020-04-20] MEDS: Calcium Carbonate 600 MG + Vit D TAB PO SCH (11:51)
[2020-04-20] MEDS: REMDESIVIR (EUA) 100 MG in Sodium Chloride 0.9% 250 ML 230 ML IV SCH (12:43)
[2020-04-20] MEDS: Acetaminophen 325 MG TAB PO PRN (17:16)
[2020-04-21 04:22] LABS: #Lymphocytes 1.2 thou/uL (1.20-3.40); #Neutrophils 6.7 thou/uL (1.40-6.50); %Basophils 0.1 % (0.0-1.0); %Eosinophils 0.5 % (0.0-10.0); %Lymphocytes 13.7 % (21.0-51.0); %Monocytes 10.7 % (0.0-10.0); Hemoglobin 14.4 g/dL (14.0-18.0); Mean Corpuscular HGB CONC 33.1 g/dL (32.0-36.0); Mean Corpuscular Hemoglobin 28.8 pg (27.0-31.0); Mean Platelet Volume 7.9 fL (7.4-10.4); Platelet Count 278 thou/uL (130-400); RBC Distribution Width 12.5 % (11.5-14.5); Red Blood Cell (RBC) Count 5.02 mill/uL (4.70-6.10)
[2020-04-21 04:44] LABS: Anion Gap 14 mmol/L (10-20); BUN (Urea Nitrogen) 17 mg/dL (8.9-20.6); Calc. Creatinine Clearance 198 mL/min (70-130); Calcium 8.2 mg/dL (7.8-10.44); Carbon Dioxide 23 mmol/L (22-29); Chloride 103 mmol/L (98-107); Glucose 117 mg/dL (70-105); Potassium 4.1 mmol/L (3.5-5.1); Sodium 136 mmol/L (136-145)
[2020-04-21 04:46] LABS: ALT (SGPT) 27 U/L (8-55); AST (SGOT) 25 U/L (5-34); Albumin 3.1 g/dL (3.5-5.0); Alkaline Phosphatase 49 U/L (40-110); Bilirubin, Direct 0.3 mg/dL (0.1-0.3); Bilirubin, Total 0.5 mg/dL (0.2-1.2); Lipase 65 U/L (8-78); Magnesium 2.4 mg/dL (1.6-2.6); Protein, Total 6.3 g/dL (6.0-8.3)
[2020-04-21] MEDS: Dexamethasone 4 MG TAB PO SCH (07:45)
[2020-04-21] MEDS: Enoxaparin Sodium 40 MG/0.4 ML SYRINGE SC SCH (07:46)
[2020-04-21 07:54] VITALS: BP 116/78; TEMP 98.2
[2020-04-21] MEDS ORDERED: Cholecalciferol (Vitamin D3) 400 UNITS TAB PO SCH (09:00)
--- NOTE | 2020-04-21 09:45 | PDOC.HOSPP ---
- Subjective Encounter Date: 04/21/20 Encounter Time: 09:32 - Objective Vital Signs & Weight: Vital Signs (12 hours) Temp Pulse Resp BP Pulse Ox 04/21/20 07:53 98.2 F 56 L 18 116/78 97 04/21/20 05:32 97.7 F 57 L 18 114/80 94 L 04/21/20 04:00 46 L 04/21/20 02:10 97.4 F L 51 L 18 110/64 93 L 04/21/20 00:25 97.9 F 63 18 94/63 94 L 04/21/20 00:10 56 L 92 L Weight Weight 228 lb 14.4 oz Most Recent Monitor Data Heart Rate from ECG 88 NIBP 96/61 I&O: 04/20/20 04/21/20 04/22/20 06:59 06:59 06:59 Intake Total 1340 250 Output Total 700 400 Balance 640 -150 Result Diagrams: 04/21/20 04:11 04/21/20 04:11 Additional Labs: Accuchecks 04/21/20 03:05 POC Glucose 124 H Hospitalist ROS - Medication Medications: Active Medications Generic Name Dose Route Start Last Admin Trade Name Freq PRN Reason Stop Dose Admin Acetaminophen 650 mg 04/16/20 09:41 04/20/20 17:16 Acetaminophen 325 Mg Tab PO 650 mg Q4H PRN Administration Headache/Fever/Mild Pain (1-3) Benzonatate 100 mg 04/16/20 09:46 04/19/20 20:24 Benzonatate 100 Mg Cap PO 100 mg Q4H PRN Administration Cough Cholecalciferol 400 units 04/21/20 09:00 04/21/20 07:45 Cholecalciferol (Vitamin D3) 400 Units Tab PO 400 units DAILY DARBY Administration Dexamethasone 6 mg 04/17/20 08:00 04/21/20 07:45 Dexamethasone 4 Mg Tab PO 6 mg QAM-WM DARBY Administration Enoxaparin Sodium 40 mg 04/17/20 21:00 04/21/20 07:46 Enoxaparin Sodium 40 Mg/0.4 Ml Syringe SC 40 mg 0900,2100 DARBY Administration Ondansetron HCl 4 mg 04/16/20 09:41 04/19/20 05:36 Ondansetron Pf 4 Mg/2 Ml Vial IVP 4 mg Q6H PRN Administration Nausea/Vomiting Pantoprazole Sodium 40 mg 04/20/20 09:00 04/21/20 07:45 Pantoprazole 40 Mg Tab PO 40 mg DAILY DARBY Administration Hospitalist Exam Vitals: Vital Signs (12 hours) Temp Pulse Resp BP Pulse Ox 04/21/20 07:53 98.2 F 56 L 18 116/78 97 04/21/20 05:32 97.7 F 57 L 18 114/80 94 L 04/21/20 04:00 46 L 04/21/20 02:10 97.4 F L 51 L 18 110/64 93 L 04/21/20 00:25 97.9 F 63 18 94/63 94 L 04/21/20 00:10 56 L 92 L Weight Weight 228 lb 14.4 oz Most Recent Monitor Data Heart Rate from ECG 88 NIBP 96/61
--- NOTE | 2020-04-21 12:05 | DIS ---
DATE OF ADMISSION: 04/15/2020 DATE OF DISCHARGE: 04/21/2020 DISPOSITION: Discharged home. PRIMARY CARE PHYSICIAN: Out of town in [place], [place]. FINAL DIAGNOSES: COVID-19 pneumonia, acute respiratory failure, positive influenza B test, and generalized abdominal pain, resolved. DISCHARGE MEDICATION: Decadron 6 mg p.o. daily for 5 more days. ALLERGIES: 1. TRAMADOL. 2. VANCOMYCIN. CODE STATUS: Full. PENDING AT THE TIME OF DISCHARGE: Nothing. HOSPITAL COURSE: The patient was admitted to the hospitalist service through [facility] after transfer from [place]. Consultations, none. Procedures, none. The patient was admitted with history of childhood asthma, found at outside hospital to have COVID plus flu B. He had been on Tamiflu. He required O2 to maintain oxygen saturation in the 90s. The patient received albuterol inhaler, ceftriaxone, azithromycin, and Solu-Medrol in outside hospital. Studies here; CTA of the thorax, multifocal ground-glass densities consistent with COVID-19. Comp metabolic profile normal except for blood sugar of 160. Troponin was elevated at 1.17, ferritin 508, C-reactive protein 5.9. CBC, normal white count with a low lymphocyte count. The patient received five days of remdesivir, was put on Decadron. Currently, his chest is clear. His O2 saturations are running 93% to 98% on room air. He is doing well. His vital signs are stable. His chest exam is clear. His vital signs are clear. He is being discharged. He has been asked to quarantine for a total of 14 days. He has been asked to see his PCP in 7 days. Job ID: [id number]
--- NOTE | 2020-04-25 13:55 | EKG ---
Test Reason : Blood Pressure : / mmHG Vent. Rate : 051 BPM Atrial Rate : 051 BPM P-R Int : 134 ms QRS Dur : 100 ms QT Int : 448 ms P-R-T Axes : 037 041 040 degrees QTc Int : 412 ms Sinus bradycardia Otherwise normal ECG Confirmed by DR. Mariama MORRIS ([id number]) on 04/25/2020 1:55:34 PM Referred By: SHAD Confirmed By:DR. Mariama MORRIS
== END 2020-04-21 11:36 | disposition home or self-care (01) | DRG 177 ==
LOC: T4-A 23:20
PROVIDERS: ADMIT Student in an Organized Health Care Education/Training Program; ATTEND Internal Medicine
PROC: XW033E5 Introduction of Remdesivir Anti-infective into Peripheral Vein, Percutaneous Approach, New Technology Group 5 (ICD-10-PCS; 2020-04-16)
PROC: XW13325 Transfusion of Convalescent Plasma (Nonautologous) into Peripheral Vein, Percutaneous Approach, New Technology Group 5 (ICD-10-PCS; principal; 2020-04-17)
DX: U07.1 COVID-19 (principal); J12.82 Pneumonia due to coronavirus disease 2019; J96.01 Acute respiratory failure with hypoxia; J10.08 Influenza due to other identified influenza virus with other specified pneumonia; J45.909 Unspecified asthma, uncomplicated; R10.9 Unspecified abdominal pain; R00.1 Bradycardia, unspecified; Z88.1 Allergy status to other antibiotic agents; Z88.6 Allergy status to analgesic agent; Z90.49 Acquired absence of other specified parts of digestive tract
CPT/HCPCS: 36415; 36416; 36430; 71045; 71275; 74018; 80048; 80053; 80076; 82728; 83605; 83690; 83735; 83880; 84484; 85025; 85379; 86140; 86850; 86900; 86901; 87040; 87804; 93005; 93010; J0456; J0696; J1650; J2405; J3490; J7050; J8540; P9017